=== PATIENT | male | born 1930 | race Caucasian/White ===

== ENCOUNTER → 2016-08-28 | Outpatient (CLI) | payer MEDICARE ==
[~2016-08-28] MED LIST: ALDACTONE DPS25 MG PO; ALPHAGAN P5 ML OU; ASCORBIC ACID500 MG PO; ASPIRIN EC81 MG PO; CATAPRES0.3 MG PO; COENZYME Q-10200 MG PO; COREG DPS6.25 MG PO; COSOPT PLUS DPS10 ML OU; CULTURELLE1 CAP PO; DUONEB DPS3 ML IH; IMODIUM DPS2 MG PO; KLOR-CON M2020 ME1 PO; LASIX DPS80 MG PO; LIPITOR DPS10 MG PO; MAALOX DPS30 ML PO; METAMUCIL SF P3.4 GM PO; MILK OF MAGNESI10 ML PO; NITROSTAT0.4 MG SL; NORVASC DPS10 MG PO; OMEGA-3 DPS1000 MG PO; PROSCAR DPS5 MG PO; SURFAK DPS240 MG PO; SYNTHROID DP0.088 MG PO; THERAPEUTIC MUL1 TAB PO; TYLENOL DPS325 MG PO; ULTRAM DPS50 MG PO; UROXATRAL10 MG PO; VITAMIN D1000 UNI1 PO; WELLBUTRIN SR150 M1 PO; XALATAN2.5 ML OU; ZESTRIL DPS20 MG PO; ZOLOFT DPS100 MG PO
== END | disposition home or self-care (01) ==
LOC: RAD.S 08-21 09:25
PROC: 0W9B3ZZ Drainage of Left Pleural Cavity, Percutaneous Approach (ICD-10-PCS; principal; 2016-08-28)
DX: J90 Pleural effusion, not elsewhere classified (principal); I50.9 Heart failure, unspecified; R93.8 Abnormal findings on diagnostic imaging of other specified body structures